=== PATIENT | female | born 1960 | race Caucasian/White ===

== ENCOUNTER → 2025-03-13 10:47 | Outpatient (CLI) | payer MEDICARE, OTHER, SELFPAY ==
--- NOTE | 2025-03-13 10:50 | EKG_ITS ---
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
[2025-03-13 11:48] LABS: Add Manual Diff / Slide Review NO; Hematocrit 38.7 % (36-46); Hemoglobin 13.0 g/dL (12.0-16.0); Lymphocytes Absolute Auto 3000 /uL (1100-4500); Mean Corpuscular HGB Conc 33.5 % (30-36); Mean Corpuscular Hemoglobin 31.9 PG (26-34); Mean Corpuscular Volume 95.1 fL (80-100); Platelet Count 345 X10^3/uL (150-400)
[2025-03-13 12:45] LABS: Alanine Aminotransferase 14 IU/L (<35); Albumin 4.3 g/dL (3.5-5.0); Albumin Globulin Ratio 1.7 (1.0-2.8); Alkaline Phosphatase 79 U/L (38-126); Blood Urea Nitrogen 18 mg/dL (7-17); Calcium 9.9 mg/dL (8.4-10.2); Carbon Dioxide 32 mmol/L (22-32); Chloride 102 mmol/L (98-107); Estimated Glomerular Filt Rate > 60 mL/min (>60); Globulin 2.6 g/dL (1.7-4.1); Glucose 99 mg/dL (70-99); HEMOLYSIS < 15 (0-50); Potassium 4.3 mmol/L (3.4-5.1); Sodium 140 mmol/L (137-145); Total Protein 6.9 g/dL (6.3-8.2)
== END ==
PROVIDERS: PCP Student in an Organized Health Care Education/Training Program; Referring Provider Student in an Organized Health Care Education/Training Program; Visit Provider Student in an Organized Health Care Education/Training Program
DX: Z01.818 Encounter for other preprocedural examination (principal)
CPT/HCPCS: 36415; 80053; 85025; 93005; 93010